=== PATIENT | male | born 1990 | race Caucasian/White ===

== ENCOUNTER 2017-01-10 15:10 | Emergency (ER) | payer OTHER ==
[~2017-01-10] VITALS: Ht 180.3 cm; Wt 108.9 kg
[2017-01-10 15:24] VITALS: BP 150/82
[2017-01-10] MEDS ORDERED: CYCL10TA2 PO (15:39)
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
== END 2017-01-10 15:50 | disposition home or self-care (01) ==
LOC: ER 15:10
DX: M54.5 Low back pain (principal); R20.0 Anesthesia of skin; M79.89 Other specified soft tissue disorders
CPT/HCPCS: 99283